=== PATIENT | female | born 1975 ===

== ENCOUNTER 2020-02-29 10:55 | Day surgery (SDC) | payer OTHER ==
[~2020-02-29 10:55] MED LIST: Lactated Ringers 1,000 ML IV SCH; Lidocaine 2% 5 ML SDV ONE; Midazolam 1 MG/ML 2 ML SDV ONE; Propofol 200 MG/20 ML SDV ONE; Sodium Chloride 0.9% 10 ML SDV IV PRN; Sodium Chloride 0.9% 10 ML Syringe FLUSH PRN; Sodium Chloride 0.9% 2.5 ML Syringe FLUSH PRN; fentaNYL 100 MCG/2 ML SDV ONE
--- NOTE | 2020-02-29 11:46 | PCM.PREANE ---
Preanesthetic Assessment - Anesthesia/Transfusion/Family Hx Anesthesia History: Prior Anesthesia Without Reaction Family History of Anesthesia Reaction: No Transfusion History: Prior Transfusion Without Reaction Type of Transfusion Reactions: Other Type of Transfusion Reaction: feraheme infusions x2, no reactions - Review of Systems General: No Symptoms Pulmonary: No Symptoms Cardiovascular: No Symptoms Gastrointestinal: No Symptoms Neurological: No Symptoms Other: Reports: None - Physical Assessment NPO Status Date: 02/28/20 Vital Signs: Last Vital Signs Temp 97.7 F 02/29/20 11:10 Pulse 72 02/29/20 11:10 Resp 16 02/29/20 11:10 BP 125/65 02/29/20 11:10 Pulse Ox 100 02/29/20 11:10 Height: 5 ft 4 in Weight: 73.936 kg ASA Class: 2 Mental Status: Alert & Oriented x3 Airway Class: Mallampati = 2 Dentition: Reports: Normal Dentition ROM/Head Extension: Full Lungs: Clear to Auscultation, Normal Respiratory Effort Cardiovascular: Regular Rate, Regular Rhythm - Allergies Allergies/Adverse Reactions: Allergies Allergy/AdvReac Type Severity Reaction Status Date / Time No Known Allergies Allergy Verified 02/23/20 09:48 - Blood Blood Available: No - Anesthesia Plan Pre-Op Medication Ordered: None - Acknowledgements Anesthesia Type Planned: General Anesthesia Pt an Appropriate Candidate for the Planned Anesthesia: Yes Alternatives and Risks of Anesthesia Discussed w Pt/Guardian: Yes Pt/Guardian Understands and Agrees with Anesthesia Plan: Yes Additional Comments: PMH: s/p gastric sleeve PLAN: tiva PreAnesthesia Questionnaire HEENT History: Reports: Other (See Below) Other HEENT History: wears glasses Cardiovascular History: Reports: None Respiratory History: Reports: None Gastrointestinal History: Reports: None Genitourinary History: Reports: Renal Calculus 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: Musculoskeletal History: Reports: Back Pain, Chronic Neurological History: Reports: None Psychiatric History: Reports: Other (See Below) Other Psychiatric History: PMDD Endocrine/Metabolic History: Reports: None Hematologic History: Reports: Iron Deficiency, Other (See Below) Other Hematologic History: iron infusions Immunologic History: Reports: None Oncologic (Cancer) History: Reports: Other (See Below) Other Oncologic History: mycosis fungoides Dermatologic History: Reports: Other (See Below) Other Dermatologic History: mycosis fungoides - Past Surgical History Head Surgeries/Procedures: Reports: None HEENT Surgical History: Reports: None Cardiovascular Surgical History: Reports: None Respiratory Surgical History: Reports: None GI Surgical History: Reports: Bariatric Procedure Other GI Surgeries/Procedures: gastric sleeve Female Surgical History: Reports: Section, Lithotripsy/ESWL, Tubal Ligation Endocrine Surgical History: Reports: None Neurological Surgical History: Reports: None Musculoskeletal Surgical History: Reports: None Oncologic Surgical History: Reports: None Dermatological Surgical History: Reports: None - SUBSTANCE USE Smoking Status *Q: Never Smoker Tobacco Use Within Last Twelve Months: No - HOME MEDS Home Medications: Home Meds Calcium Carbonate [Calcium] 1 tab PO BID 02/23/20 [History] Ergocalciferol (Vitamin D2) [Drisdol] 1.25 mg PO WEEKLY 02/23/20 [History] DULoxetine [Cymbalta] 60 mg PO DAILY 02/29/20 [History] - CURRENT (IN HOUSE) MEDS Current Meds: Current Medications Lactated Ringer's (Ringers, Lactated) 1,000 mls @ 125 mls/hr IV ASDIRECTED VANNESSA Sodium Chloride (Saline Flush) 10 ml FLUSH ASDIRECTED PRN PRN Reason: Keep Vein Open Sodium Chloride (Saline Flush) 2.5 ml FLUSH ASDIRECTED PRN PRN Reason: Keep Vein Open Sodium Chloride (Saline Flush) 10 ml FLUSH ASDIRECTED PRN PRN Reason: Keep Vein Open Sodium Chloride (Saline Flush) 2.5 ml FLUSH ASDIRECTED PRN PRN Reason: Keep Vein Open Sodium Chloride (Normal Saline) 10 ml IV ASDIRECTED PRN PRN Reason: IV Use Discontinued Medications Fentanyl (Sublimaze) Confirm Administered Dose 100 mcg .ROUTE .STK-MED ONE Stop: 02/29/20 06:57 Lidocaine (Xylocaine-Mpf 2%) Confirm Administered Dose 5 ml .ROUTE .STK-MED ONE Stop: 02/29/20 06:57 Midazolam HCl (Versed 1 Mg/Ml) Confirm Administered Dose 2 mg .ROUTE .STK-MED ONE Stop: 02/29/20 06:57 Propofol (Diprivan 20 Ml) Confirm Administered Dose 400 mg .ROUTE .STK-MED ONE Stop: 02/29/20 06:57
--- NOTE | 2020-02-29 12:54 | PCM.POSTAN ---
POST ANESTHESIA ASSESSMENT - MENTAL STATUS Mental Status: Alert, Oriented - VITAL SIGNS Vital Signs: Last Vital Signs Temp 36.4 C 02/29/20 12:37 Pulse 83 02/29/20 12:49 Resp 15 02/29/20 12:49 BP 105/65 02/29/20 12:49 Pulse Ox 96 02/29/20 12:49 - RESPIRATORY Respiratory Status: Respiratory Rate WNL, Airway Patent, O2 Saturation Stable - CARDIOVASCULAR CV Status: Pulse Rate WNL, Blood Pressure Stable - GASTROINTESTINAL GI Status: No Symptoms - PAIN Pain Score: 0 - POST OP HYDRATION Hydration Status: Adequate & Stable
--- NOTE | 2020-02-29 13:09 | PCM.OPNOTE ---
- General Post-Op/Procedure Note Date of Surgery/Procedure: 02/29/20 Operative Procedure(s): Diagnostic EGD and colonoscopy Findings: Hiatal hernia, normal appearing gastric sleeve, normal appearing colon Pre Op Diagnosis: NINO, change in bowel habits Post-Op Diagnosis: Hiatal hernia, normal colonoscopy Anesthesia Technique: MAC Primary Surgeon: Salma Ortiz Condition: Good Free Text/Narrative:: Intake & Output 02/28/20 02/29/20 02/29/20 22:59 06:59 14:59 Intake Total 650 Balance 650
--- NOTE | 2020-02-29 13:15 | PCM48HPAN ---
Post Anesthesia Note - EVALUATION WITHIN 48HRS OF ANESTHETIC Vital Signs in Normal Range: Yes Patient Participated in Evaluation: Yes Respiratory Function Stable: Yes Airway Patent: Yes Cardiovascular Function Stable: Yes Hydration Status Stable: Yes Pain Control Satisfactory: Yes Nausea and Vomiting Control Satisfactory: Yes Mental Status Recovered: Yes Vital Signs: Last Vital Signs Temp 36.4 C 02/29/20 12:37 Pulse 83 02/29/20 12:49 Resp 15 02/29/20 12:49 BP 105/65 02/29/20 12:49 Pulse Ox 96 02/29/20 12:49
--- NOTE | 2020-02-29 17:18 | OR ---
SURGEON: SALMA ORTIZ MD DATE OF PROCEDURE: 02/29/2020 PREOPERATIVE DIAGNOSES: Iron deficiency anemia, change in bowel habits. POSTOPERATIVE DIAGNOSES: 1. Hiatal hernia. 2. Irritable bowel syndrome. PROCEDURES PERFORMED: Diagnostic esophagogastroduodenoscopy and colonoscopy. PRIMARY SURGEON: Salma Ortiz MD ANESTHESIA: MAC. INSTRUMENT USED: Olympus endoscope, colonoscope. EXTENT OF EXAM: To the second portion of duodenum, to the cecum. PREPARATION: Good. LIMITATIONS: None. INDICATIONS FOR EXAMINATION: The patient is a 44-year-old female who presents with iron deficiency anemia as well as a change in her bowel habits. She has a history of a gastric sleeve and hiatal hernia repair. The decision was made to proceed with a diagnostic EGD and colonoscopy. The patient and I discussed the procedure; expected perioperative course; and risks including bleeding, infection, or damage to surrounding structures including perforation. She verbalized understanding and wishes to proceed. PROCEDURE IN DETAIL: The patient was brought into the endoscopy suite and placed in a beach chair position. A time-out was completed verifying the patient's name, age, date of , allergies, and procedure to be performed. A bite block was placed in the patient's mouth. Monitored anesthesia care was induced and continuous oxygen was provided via nasal cannula throughout the procedure. After adequate sedation was achieved, a well-lubricated endoscope was placed in the patient's mouth and advanced under direct visualization to the second portion of the duodenum. This appeared normal and a photograph was taken. The scope was then fully withdrawn while examining the color, texture, anatomy, and integrity of the mucosa of the upper GI tract. The duodenum appeared normal. The scope was brought into the stomach and a photograph was taken of the pylorus. This appeared normal. The patient's anatomy was consistent with the previous sleeve gastrectomy; and therefore, I did not retroflex the scope within the stomach. Biopsies were taken of the gastric antrum, body, and fundus and sent for histologic review and H. pylori testing. The staple line appeared intact with no evidence of any pathology. The scope was then brought into the distal esophagus. The patient appeared to have a small hiatal hernia present. Photographs of this were taken. The Z-line did appear normal. The distal esophageal mucosa showed no signs of inflammation or ulceration. Two biopsies were taken 1 cm above the Z-line and sent to pathology, labeled as esophageal biopsies. The remainder of the esophagus appeared normal and the scope was removed. The patient was then placed in a left lateral decubitus position. A digital rectal exam was performed. This exam was within normal limits. A well- lubricated colonoscope was inserted in the rectum and advanced under direct visualization to the level of the cecum. The cecum was identified by both visual and anatomic landmarks. A photograph was taken of the cecal cap as well as with the scope retroflexed within the cecum. The scope was then fully withdrawn while examining the color, texture, anatomy, and integrity of the mucosa from the cecum to the anal canal. The findings were consistent with normal colonic mucosa. The scope was brought into the rectum and retroflexed to allow visualization of the anal canal opening. This appeared normal and a photograph was taken. The scope was then straightened out and fully withdrawn. The cecum to anus time was 6 minutes. The patient tolerated the procedure well and was transferred to the PACU in stable condition. ENDOSCOPIC DIAGNOSES: 1. Hiatal hernia. 2. Irritable bowel syndrome. RECOMMENDATIONS: Follow up in clinic in 2 weeks. PRABHA NO /[id number]
== END 2020-02-29 13:18 | disposition home or self-care (01) ==
LOC: MW.SDS 10:55
PROVIDERS: ATTEND Surgery
DX: K44.9 Diaphragmatic hernia without obstruction or gangrene (principal); K58.9 Irritable bowel syndrome, unspecified; D50.9 Iron deficiency anemia, unspecified; Z98.84 Bariatric surgery status; Z98.890 Other specified postprocedural states
CPT/HCPCS: 43239; 45378; 81025; 88305; 88312; J2001; J2250; J2704; J3010; J7120; 00813

== ENCOUNTER 2020-09-15 06:24 | Day surgery (SDC) | payer OTHER ==
[2020-09-15] MEDS ORDERED: Lactated Ringers 1,000 ML IV SCH (06:30)
--- NOTE | 2020-09-15 06:57 | PCM.PREANE ---
Preanesthetic Assessment - Anesthesia/Transfusion/Family Hx Anesthesia History: Prior Anesthesia Without Reaction Family History of Anesthesia Reaction: No Transfusion History: No Prior Transfusion(s) Type of Transfusion Reactions: Intubation History: Unknown - Review of Systems General: No Symptoms Pulmonary: No Symptoms Cardiovascular: No Symptoms Gastrointestinal: No Symptoms Neurological: No Symptoms Other: Reports: None - Physical Assessment Vital Signs: Last Vital Signs Temp 36.0 C L 09/15/20 06:30 Pulse 80 09/15/20 06:30 Resp 15 09/15/20 06:30 BP 126/74 09/15/20 06:30 Pulse Ox 97 09/15/20 06:30 Height: 5 ft 4 in Weight: 73.028 kg ASA Class: 2 Mental Status: Alert & Oriented x3 Airway Class: Mallampati = 1 Dentition: Reports: Normal Dentition Thyro-Mental Finger Breadths: 3 Mouth Opening Finger Breadths: 3 ROM/Head Extension: Full Lungs: Clear to Auscultation, Normal Respiratory Effort Cardiovascular: Regular Rate, Regular Rhythm - Allergies Allergies/Adverse Reactions: Allergies Allergy/AdvReac Type Severity Reaction Status Date / Time No Known Allergies Allergy Verified 09/11/20 09:17 - Blood Blood Available: No - Anesthesia Plan Pre-Op Medication Ordered: None - Acknowledgements Anesthesia Type Planned: General Anesthesia Pt an Appropriate Candidate for the Planned Anesthesia: Yes Alternatives and Risks of Anesthesia Discussed w Pt/Guardian: Yes Pt/Guardian Understands and Agrees with Anesthesia Plan: Yes PreAnesthesia Questionnaire HEENT History: Reports: Other (See Below) Other HEENT History: wears glasses Cardiovascular History: Reports: None Respiratory History: Reports: None Gastrointestinal History: Reports: Hiatal Hernia Other Gastrointestinal History: occasional heartburn Genitourinary History: Reports: Renal Calculus 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: Musculoskeletal History: Reports: Back Pain, Chronic Neurological History: Reports: None Psychiatric History: Reports: Anxiety, Depression, Other (See Below) Other Psychiatric History: PMDD Endocrine/Metabolic History: Reports: None Hematologic History: Reports: Iron Deficiency, Other (See Below) Other Hematologic History: iron infusions Immunologic History: Reports: None Oncologic (Cancer) History: Reports: Other (See Below) Other Oncologic History: mycosis fungoides Dermatologic History: Reports: Other (See Below) Other Dermatologic History: mycosis fungoides - Past Surgical History Head Surgeries/Procedures: Reports: None HEENT Surgical History: Reports: None Cardiovascular Surgical History: Reports: None Respiratory Surgical History: Reports: None GI Surgical History: Reports: Bariatric Procedure, Colonoscopy, EGD Other GI Surgeries/Procedures: gastric sleeve with hiatal hernia repair Female Surgical History: Reports: Breast Biopsy, Section, Lithotripsy/ESWL, Tubal Ligation Endocrine Surgical History: Reports: None Neurological Surgical History: Reports: None Musculoskeletal Surgical History: Reports: None Oncologic Surgical History: Reports: None Dermatological Surgical History: Reports: None - SUBSTANCE USE Tobacco Use Status *Q: Never Tobacco User - HOME MEDS Home Medications: Home Meds Ergocalciferol (Vitamin D2) [Drisdol] 50,000 units PO WEEKLY 02/23/20 [History] DULoxetine [Cymbalta] 60 mg PO DAILY 02/29/20 [History] Calcium Carbonate [Calcium] 500 mg PO BID 09/12/20 [History] Modafinil [Provigil] 0.5 tab PO DAILY 09/12/20 [History] - CURRENT (IN HOUSE) MEDS Current Meds: Current Medications Lactated Ringer's (Ringers, Lactated) 1,000 mls @ 100 mls/hr IV ASDIRECTED VANNESSA
[2020-09-15] MEDS ORDERED: Midazolam 1 MG/ML 2 ML SDV ONE (07:01)
[2020-09-15] MEDS ORDERED: fentaNYL 250 MCG/5 ML SDV ONE (07:01)
[2020-09-15] MEDS ORDERED: Propofol 200 MG/20 ML SDV ONE (07:01)
[2020-09-15] MEDS ORDERED: Rocuronium Bromide 50 MG/5 ML Syringe ONE (07:02)
[2020-09-15] MEDS ORDERED: Ondansetron 4 MG/2 ML SDV ONE (07:02)
[2020-09-15] MEDS ORDERED: Dexamethasone 4 MG/ML 5 ML MDV ONE (07:02)
[2020-09-15] MEDS ORDERED: Glycopyrrolate 0.2 MG/ML SDV ONE ×2 (07:02→08:32)
[2020-09-15] MEDS ORDERED: Acetaminophen 1,000 MG in Premix Bag 1 BAG IV PRN (07:11)
[2020-09-15] MEDS ORDERED: Bupivacaine 0.25% 10 ML SDV ONE (07:11)
[2020-09-15] MEDS ORDERED: Fluorescein 5 ML Vial ONE (07:11)
[2020-09-15] MEDS ORDERED: fentaNYL 100 MCG/2 ML SDV IVPUSH PRN (07:11)
[2020-09-15] MEDS ORDERED: Ketorolac 30 MG/ML SDV ONE (08:33)
--- NOTE | 2020-09-15 09:04 | PCM.OPNOTE ---
- General Post-Op/Procedure Note Date of Surgery/Procedure: 09/15/20 Operative Procedure(s): Bilateral salpingo-oophorectomy Findings: Bilateral fallopian tubes and ovaries. Pre Op Diagnosis: PMDD Post-Op Diagnosis: Same Anesthesia Technique: General ET Tube Primary Surgeon: Stephanie Becker Secondary Surgeon: Julia Tsang Pathology: right and left fallopian tubes and ovaries Fluid Replacement, Intraop: 1,000 Output, Urine Amount: 35 EBL in mLs: 20 Complications: none known Condition: Stable
--- NOTE | 2020-09-15 09:21 | PCM.POSTAN ---
POST ANESTHESIA ASSESSMENT - MENTAL STATUS Mental Status: Alert, Oriented - VITAL SIGNS Vital Signs: Last Vital Signs Temp 36.2 C 09/15/20 08:51 Pulse 103 H 09/15/20 09:11 Resp 13 09/15/20 09:11 BP 123/59 L 09/15/20 09:11 Pulse Ox 100 09/15/20 09:11 - RESPIRATORY Respiratory Status: Respiratory Rate WNL, Airway Patent, O2 Saturation Stable - CARDIOVASCULAR CV Status: Pulse Rate WNL, Blood Pressure Stable - GASTROINTESTINAL GI Status: No Symptoms - PAIN Pain Score: 0 - POST OP HYDRATION Hydration Status: Adequate & Stable - OBSERVATIONS Free Text/Narrative:: No anesthesia problems
--- NOTE | 2020-09-15 10:44 | PCM48HPAN ---
Post Anesthesia Note - EVALUATION WITHIN 48HRS OF ANESTHETIC Vital Signs in Normal Range: Yes Patient Participated in Evaluation: Yes Respiratory Function Stable: Yes Airway Patent: Yes Cardiovascular Function Stable: Yes Hydration Status Stable: Yes Pain Control Satisfactory: Yes Nausea and Vomiting Control Satisfactory: Yes Mental Status Recovered: Yes Vital Signs: Last Vital Signs Temp 36.2 C 09/15/20 09:16 Pulse 79 09/15/20 09:46 Resp 16 09/15/20 09:46 BP 123/66 09/15/20 09:46 Pulse Ox 100 09/15/20 09:46 - COMMENTS/OBSERVATIONS Free Text/Narrative:: No anesthesia problems
--- NOTE | 2020-09-15 11:09 | OR ---
SURGEON: Stephanie Becker M.D. DATE OF PROCEDURE: 09/15/2020 PREOPERATIVE DIAGNOSIS: Severe premenstrual dysphoric disorder, responsive to Lupron. POSTOPERATIVE DIAGNOSIS: Severe premenstrual dysphoric disorder, responsive to Lupron. PROCEDURE: Laparoscopic bilateral salpingo-oophorectomy. PRIMARY SURGEON: Stephanie Becker M.D. CANE FURNITURE MAKER: Julia Tsang MS-4 ANESTHESIA: General endotracheal. FLUIDS: 1000 mL of crystalloid. ESTIMATED BLOOD LOSS: Minimal. COMPLICATIONS: None known. DISPOSITION: Stable to Recovery. FINDINGS: Normal-appearing uterus, tubes, and ovaries with the uterus having some adhesions anteriorly from prior . 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 A band was identified on the left tube consistent with previous bilateral tubal ligation. BRIEF HISTORY: This is a 45-year-old female. She has a long history of severe PMDD. She has tried multiple treatments including hormonal antidepressant, anxiolytic, and therapeutic and the PMDD is severe and debilitating. In fact, she has gone through severe issues with her relationship and struggles at her work. Finally, we did try Lupron as a temporizing measure to see if removal of her ovarian hormones would improve her PMDD. Since receiving the Lupron, she denies any symptoms of PMDD and therefore, she now presents for bilateral salpingo- oophorectomy due to PMDD exacerbated by ovarian hormones. Risks were discussed including bleeding; infection; injury to bowel, bladder, blood vessels, ureters, or other organs; risk of thromboembolic event; and risk of anesthesia. She also notes that over the past 4 to 6 weeks, she has had fairly severe pain in her left shoulder and neck, and we did discuss positioning. She prefers positioning with her shoulders extended, not at her side, and this was discussed with Anesthesia preop. DESCRIPTION OF PROCEDURE: With the patient in dorsal lithotomy position, under general endotracheal anesthesia, the abdomen was prepped with chlorhexidine. Perineum and vagina were prepped with Betadine. Orantes catheter had been placed. SCDs were in place. Appropriate time-out was held. Bimanual examination revealed a uterus with somewhat decreased mobility, 8 weeks in size. Speculum was placed in the vagina. Hulka tenaculum was placed, and the speculum was removed. Jr. Java Developer's gloves were changed. Attention was then turned abdominally where a 5 mm incision was made vertically inferior to the umbilicus. A Veress needle was inserted with 4 mmHg opening pressure. CO2 was insufflated to develop an adequate pneumoperitoneum. A 5 mm port was placed. Laparoscope was placed into the abdominal cavity. There was no evidence of any trauma from the laparoscopic placement site. Two additional ports were placed 2 cm medial and cephalad from the anterior superior iliac spine on the right and the left. The patient was then placed in steep Trendelenburg position, and the uterus was elevated. Bilateral ureters were identified, and they were distant from the infundibulopelvic ligaments. 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 The infundibulopelvic ligaments were then doubly cauterized using LigaSure and cut. Proceeding proximally along the mesosalpinx using the LigaSure to the tube, which was already transected due to tubal ligation, the mesosalpinx was transected, and the first tube and ovary were placed in the anterior cul-de-sac. This was repeated on the left side, and the left tube and ovary were then placed in the anterior cul-de-sac. The left lower quadrant incision was slightly enlarged to accept a 10, 12 mm port and the EndoCatch bag was utilized to remove the tubes and ovaries one at a time, and the port site did not have to be enlarged. The abdomen was then desufflated to 5 mmHg. The incision line was carefully inspected and was completely hemostatic. Therefore, the abdomen was completely desufflated. The ports were removed, and at the left lower quadrant port, the fascia was reapproximated with a [id number] suture of 0 Polysorb. The skin was closed with a running subcuticular suture of 4-0 Monocryl, and the Hulka tenaculum was removed. The cervix was inspected and was hemostatic. Final sponge, needle, and instrument counts were reported as correct. There were no known complications. The patient was transferred to Recovery in good condition. LORENA / MARYBEL /[id number]
== END 2020-09-15 10:55 | disposition home or self-care (01) ==
LOC: MW.SDS 06:24
PROVIDERS: ATTEND Obstetrics & Gynecology
DX: N80.1 Endometriosis of ovary (principal); F32.81 Premenstrual dysphoric disorder; Z98.890 Other specified postprocedural states; Z79.899 Other long term (current) drug therapy
CPT/HCPCS: 36415; 58661; 81025; 82728; 83550; 85027; J0131; J1100; J1885; J2250; J2405; J2704; J3010; J3490; J7120; 00840; 88305